=== PATIENT | female | born 2000 | race Caucasian/White ===

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

== ENCOUNTER 2020-12-18 01:39 | Outpatient (CLI) | payer OTHER, SELFPAY ==
--- NOTE | 2020-12-18 | DI.US_ITS ---
EXAM: US RENAL CLINICAL HISTORY: KIDNEY STONE,N20.0,LT HYDRONEPHROSIS TECHNIQUE: Ultrasound of both kidneys performed using standard protocol. COMPARISON: No exams were available for comparison FINDINGS: RIGHT KIDNEY: Measures 9 cm in length. No cysts evident. Normal cortical thickness and corticomedullary differentia tion .No solid masses No intrarenal calculi nor hydronephrosis. LEFT KIDNEY: Measures 10 cm in length. No cysts evident. Normal cortical thickness and corticomedullary different iaion. No solids masses. However, there appears to be mild hydronephrosis of the left kidney. URINARY BLADDER: Prevoid volume is 67 cc Postvoid volume is 25 cc No evidence of obvious bladder mass nor diverticuli. Ureterovesical jets: Both identified and appear symmetrical IMPRESSION: 1. There is unilateral mild hydronephrosis of the left kidney. No obvious calculus seen within the left kidney. 2. Right kidney appears unremarkable. 3. Bladder difficult to adequately study given that there was only 67 cc therein. DATA REPOSITORY:
== END 2020-12-18 01:59 ==
PROVIDERS: PCP Family Medicine; Visit Provider Nurse Practitioner Gerontology
DX: N13.30 Unspecified hydronephrosis (principal); Z87.442 Personal history of urinary calculi
CPT/HCPCS: 76770

== ENCOUNTER 2021-02-11 16:45 | Outpatient (REF) | payer OTHER, SELFPAY | END 2021-02-11 16:46 | disposition home or self-care (01) | LOC: LBN 16:45 | PROVIDERS: PCP Family Medicine; Visit Provider Nurse Practitioner Gerontology | DX: N39.0 Urinary tract infection, site not specified (principal) | CPT/HCPCS: 87086 ==

== ENCOUNTER 2021-04-23 14:49 | Outpatient (REF) | payer OTHER, SELFPAY ==
[2021-04-24 15:05] LABS: Chlamydia Result Negative (Negative); GC Result Negative (Negative)
== END 2021-04-23 14:50 | disposition home or self-care (01) ==
LOC: LBN 14:49
PROVIDERS: PCP Family Medicine; Visit Provider Advanced Practice Midwife
DX: F64.9 Gender identity disorder, unspecified (principal); Z11.3 Encounter for screening for infections with a predominantly sexual mode of transmission
CPT/HCPCS: 87491; 87591

== ENCOUNTER 2021-10-01 18:52 | Outpatient (REF) | payer OTHER, SELFPAY ==
[2021-10-01 14:46] LABS: Source Nasal/Nares
[2021-10-01 21:37] LABS: COVID-19 PCR Negative (Negative)
== END 2021-10-01 18:53 | disposition home or self-care (01) ==
LOC: LBN 18:52
PROVIDERS: PCP Family Medicine; Visit Provider Nurse Practitioner Gerontology
DX: Z20.822 Contact with and (suspected) exposure to COVID-19 (principal); Z01.818 Encounter for other preprocedural examination
CPT/HCPCS: 87635

== ENCOUNTER 2021-10-02 06:06 | Day surgery (SDC) | payer OTHER, SELFPAY ==
[2021-10-02] VITALS (8 sets, daily range): BP systolic 92–123; BP diastolic 49–84; PULSE 70–96; RESP 13–19; TEMP 36.3–37.1; O2SAT 98–100; BMI 21.6
--- NOTE | 2021-10-02 06:27 | W.ANESPRE ---
General Info Date of Service Date Performed: 10/02/21 Height: 5 ft 5 in Weight: 58.967 kg Body Mass Index (BMI): 21.6 Surgical Procedure: Operation Date: 10/02/21 07:40 Proposed Procedures Side Surgeon p Cystoscopy/Retrograde/Ureteroscopy/Stone Manipulation/ Poss. Stent Left Lewis Alberto MD Meds Allergies and Home Medications Allergies Allergy/AdvReac Type Severity Reaction Status Date / Time No Known Drug Allergies Allergy Verified 10/02/21 06:41 Home Medication Medication Instructions Recorded benzoyl peroxide 10 % lotion 1 applic TOPICAL DAILY #29.5 ml 06/19/21 norgestimate-ethinyl estradiol 1 tab PO DAILY 10/01/21 [[id number]] Current Visit Medications: Current Medications Generic Name Dose Route Start Last Admin Trade Name Freq PRN Reason Stop Dose Admin Ringer's Solution 1,000 mls @ 80 mls/hr 10/02/21 06:00 IV 10/31/21 23:59 INFUSION HALEIGH Cefazolin Sodium/Dextrose 2 gm in 50 mls @ 100 mls/hr 10/02/21 06:00 Ancef Duplex IVPB 10/02/21 16:00 PREOP HALEIGH IV Miscellaneous Supplies 1 each 10/02/21 06:00 Iv Access IV 10/31/21 23:59 DIRECTED HALEIGH Sodium Chloride 0 ml 10/02/21 06:00 Normal Saline Flush 10 Ml Syr IV 10/31/21 23:59 PRN PRN Sodium Chloride 0 ml 10/02/21 06:00 Normal Saline 10 Ml Vial IJ 10/31/21 23:59 DIRECTED PRN Sterile Water 0 ml 10/02/21 06:00 Water,Injection,Sterile 10 Ml Vial IJ 10/31/21 23:59 DIRECTED PRN PFSH Active Problems Active Problems: Problem Status Onset Code Food insecurity Z59.41 Chronic mental illness F99 Gender identity disorder F64.9 Hydronephrosis of left kidney N13.30 Transgender Z78.9 Depression F32.9 Migraine G43.909 Contraception Z30.9 Screen for STD (sexually transmitted disease) Z11.3 Attention deficit hyperactivity disorder, combined type F90.2 Kidney stone N20.0 Irregular menses N92.6 Hand discomfort M79.643 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 Tobacco Smoking/Tobacco Use Status: Never Passive smoking exposure: Yes Second hand exposure: Yes Alcohol Alcohol Intake: never Substance Use Substance use: Never Substance use type: does not use Vital Signs and Lab Results Vital Signs Most Recent Vital Signs in EMR: Temp Pulse Resp BP Pulse Ox 37.1 C 96 H 16 123/84 99 10/02/21 06:49 10/02/21 06:49 10/02/21 06:49 10/02/21 06:49 10/02/21 06:49 Lab Results Blood Type / Crossmatch: No Data to Display Complete Blood Count: No Data to Display Complete Metabolic Panel: No Data to Display Liver Function Panel: No Data to Display Coagulation Panel: No Data to Display Cardiac Panel: No Data to Display Arterial Blood Gas: No Data to Display Venous Blood Gas: No Data to Display Pancreas Panel: No Data to Display Thyroid Panel: No Data to Display Infectious Disease: Coronavirus (COVID-19)(PCR) Negative (Negative) 10/01/21 14:30 10/01/21 Coronavirus 2019 Source Nasal/Nares 10/01/21 14:30 10/01/21 Blood Cultures: No Data to Display Toxicology Panel: No Data to Display Panel: No Data to Display Anesthesia Assessment and Plan Anesthesia History Personal History: No History of Anesthesia Complications Family History: No Family History of Anesthesia Complications Exercise Tolerance Exercise Tolerance: Metabolic Equivalents>4 Cardiac & Pulmonary Exam Cardiac Exam: Normal S1/S2 Heart Sounds Pulmonary Exam: Clear Bilateral Breath Sounds Implantable Cardiac Device Does patient have a Pacemaker or an ICD?: No Airway Exam Known Difficult Airway: No Mallampati Class: 3 Mouth Opening: Narrow (< 3cm) Thyromental Distance: Less than 3 cm Neck Range of Motion: Full ROM Neck Circumference: Normal Teeth Condition: Normal Dentition ASA Classification ASA Score: ASA 2 Emergency Case?: No NPO Status NPO Status: NPO Clears >2 hours, Solids >8 hours Status Status: Negative HCG Anesthesia Plan Resuscitation Status: Full Code Anesthesia Technique: General Anesthesia Airway Planned: LMA Monitors Used: Standard Monitors Preoperative Comments:: 21 yo genetic f with left hydronephrosis for stone removal/stent. Sig PMHx: anxiety/depression, kidney stones, never smoker. extremely anxious about entire process, mostly the IV.
--- NOTE | 2021-10-02 06:53 | W.PM.HP.N ---
Date of service: 10/02/21 Time of Service: 06:54 Assessment and Plan Assessment and plan (1) Hydronephrosis of left kidney: Status: Acute Assessment and plan: She has persistent hydronephrosis and what appears to be a proximal ureteral stone on US. A stone was present in the same location on prior CT scan from [facility]. With her persistent symptoms and persistent hydronephrosis, we will move forward with a cystoscopy, retrograde pyelogram, ureteroscopy, holmium laser lithotripsy and possible stent. We discussed potential complications including bleeding, infection, ureteral injury/inability to access stone requiring a ureteral stent and return to the operating room for a staged procedure. History of Present Illness History of Present Illness Chief Complaint: Left ureteral stone Narrative: Garland is a 21-year-old female that identifies as a male. He has a history of kidney stones to the left. This started earlier this year and had a CT at [facility]. At that time there was a 2 to 3 mm stone. Repeat imaging did not note any stone presence. Since that time there is been waves of renal colic symptoms. Repeat renal ultrasound was done by PCP. 8 mm proximal left ureteral stone was found. Patient is here for ureteroscopic stone manipulation Currently patient is experiencing nausea and intermittent pain. Typically ibuprofen alleviates the pain. There is no notable change to frequency or urgency. No gross hematuria has been noted. Review of Systems Narrative: No fevers or chills No vision change or dysphasia No diabetes or thyroid No shortness of breath, cough or hemoptysis No chest pain or palpitations c/o nausea. No hepatitis, ulcers, jaundice, diarrhea or constipation ADDHD, hx migraines. No seizures or peripheral neuropathy No bleeding disorders or anemia No gout PFSH All Active Problems Food insecurity (Acute) Chronic mental illness (Acute) Gender identity disorder (Acute) XX but sees self as male Hydronephrosis of left kidney (Acute) Transgender (Acute) identifies as male Depression (Chronic) Migraine (Chronic) with visual changes, spots in front of eyes Contraception (Acute) Screen for STD (sexually transmitted disease) (Acute) Kidney stone (Chronic) Irregular menses (Acute) Hand discomfort (Acute) Pronation deformity of both feet (Acute) Leg pain, bilateral (Acute) Weight loss (Acute) Annual physical exam (Acute) Anxiety (Chronic) Bilateral foot pain (Chronic 05/11/17) Acne, unspecified (Chronic 05/11/17) Social History Smoking/Tobacco Use Status: Never Second Hand Exposure: Yes Smoking risk assessment performed?: Yes Alcohol Intake: never Drug use: Never Substance use type: does not use Adopted: Yes Caregiver/Support person: No Household members: family Housing: house Communication Needs: None Do you need help understanding health information?: Rarely Pets and animals: Yes Pets and animals: cat(s) and dog(s) Sexually active: No Do you think of yourself as: bisexual Current gender identity: trans [id number] What is your relationship status?: refused to answer How often do you talk on the phone with friends or family?: three or more times per week How often do you get together with friends or relatives?: three or more times per week How often do you attend scientology or uatsdin services?: decline to answer Do you belong to any clubs or organized social groups?: no Panel score (0-1 are the most socially isolated patients): 1 What type of physical activity do you participate in: weight lifting Duration: < 15 minutes/day Frequency: 1-2 times per week Annalisa/Cheondoism: Athiest Special annalisa needs: No Seatbelt use: always Helmet use: Yes Helmet use: sometimes Drive intox or ride w/intox tractor trailer moving van driver: No Do you feel safe at home: Yes Do you feel safe in your relationship?: Yes Meds Allergies and Home Medications Allergies Allergy/AdvReac Type Severity Reaction Status Date / Time No Known Drug Allergies Allergy Verified 10/02/21 06:41 Home Medications Medication Instructions Recorded Confirmed Type benzoyl peroxide 10 % lotion 1 applic TOPICAL DAILY #29.5 ml 06/19/21 10/01/21 Rx norgestimate-ethinyl estradiol 1 tab PO DAILY 10/01/21 10/02/21 History [[id number]] Exam Const General: cooperative and anxious Neck Neck: supple Resp Effort & Inspection: normal respiratory effort Auscultation: clear to auscultation bilaterally Cardio Rate: regular rate Rhythm: regular rhythm GI Palpation: soft and no masses Neuro General: patient alert, patient awake and patient oriented x3
[2021-10-02] MEDS: Lactated Ringers 1,000 ML 80 ML IV (07:45)
[2021-10-02] MEDS: ceFAZolin 2 GM/50 ML BAG IVPB (07:52)
[2021-10-02] MEDS: Lidocaine 2% Jelly 6 ML SYR (08:15)
[2021-10-02] MEDS: Omnipaque 300 MG/ML 50 ML BTL (08:20)
--- NOTE | 2021-10-02 08:40 | W.PM.DSUDISC ---
Discharge Plan Disposition Patient Disposition: HOME Condition: Stable Discharge Details Reason For Visit: ureteroscopy Attending Provider: Lewis Alberto Primary Care Provider: Hannah Sapp Home Meds and New Rx's Prescriptions: New tramadol 50 mg tablet 50 mg PO Q6H PRN (Reason: pain) Qty: 12 RF: 0 No Action benzoyl peroxide 10 % lotion 1 applic Topical DAILY Qty: 29.5 RF: 6 norgestimate-ethinyl estradiol [Utf-Vq-Npstxpfh] 0.18/0.215/0.25 mg-25 mcg tablet 1 tab PO DAILY RF: 0 Discharge Instructions Additional Instructions: followup early next week for stent removal (tell my office staff there is a string on his stent) followup appt @ 6 weeks for renal ultrasound and stone analysis no need to strain urine Activity:: Activity as Tolerated Shower/Bathe:: 24 hours Diet:: As Tolerated Discharge Orders Discharge Orders: Discharge Order (Routine); Ordered 10/02/21 Ordered By: Lewis Alberto DS: Diagnosis Discharge Diagnosis (1) Hydronephrosis of left kidney: Status: Acute
--- NOTE | 2021-10-02 08:42 | DI.RAD_ITS ---
Exam(s) XR RETROGRADE IN OR EXAM: XR RETROGRADE IN OR CLINICAL HISTORY: left hydronephrosis, kidney stone. TECHNIQUE: 2D digital imaging was performed. COMPARISON: No exams were available for comparison FINDINGS: Fluoroscopy was fight it for urologic procedure. See procedure report for details. Total fluoroscopy time 59 seconds Cumulative dose 6.02mGy IMPRESSION: DATA REPOSITORY: RADIATION DOSE DELIVERED:
--- NOTE | 2021-10-02 08:47 | ROE_ITS ---
Date of service: 10/02/21 Time of Service: 08:47 Operative Note Operative Note DATE OF PROCEDURE: 10/02/21 PRE-OP DIAGNOSIS: Left ureteral stone POST-OP DIAGNOSIS: other left ureteral and renal stones PROCEDURE: cystoscopy, left retrograde pyelogram, left flexible ureteroscopy with extraction of ureteral and renal stones, insert left ureteral stent SURGEON: Lewis Alberto ANESTHESIA TYPE: Local By Surgeon and General LMA/ETT Refer to Anesthesia Record ESTIMATED BLOOD LOSS: 0 PATHOLOGY: other (stones for chemical analysis) COMPLICATIONS: None Patient was transported to: PACU Patient's condition: stable Implants: 4.8 Panamanian by 22 to 30 cm ureteral stent Indications: This is a 21-year-old phenotypic female who identifies as a male. He has had multiple episodes of left-sided renal colic. In the past, he has been identified as having a 3 to 4 mm left ureteral stone. He was treated conservatively. He is not sure if the stone ever passed, but his symptoms improved. Most recently, he has had intermittent left flank pain, nausea and vomiting. A renal ultrasound showed left hydronephrosis and what appeared to be a 8 mm left proximal ureteral stone. He presents now for stone manipulation. Findings: edematous area in proximal left ureter with stone in ureter above area of edema two smaller stones in upper pole calyces kidney Procedure Description: Garland was given preoperative IV antibiotics. He was brought to the operating room on 10/02/2021. After successful induction of general anesthesia, he was placed in the dorsal lithotomy position. His genitalia and perineum were prepped and draped. 2% Xylocaine jelly was then instilled into the urethra. A 22 Panamanian rigid cystoscope was passed through the urethra into the bladder. The bladder was inspected with a 30 degree lens. Both ureteral orifices appeared normal in configuration and location. No papillary or nodular lesions were seen within the bladder. No stones were seen within the bladder lumen. The left ureteral orifice was then cannulated with a 6 Panamanian access catheter. Retrograde pyelogram was obtained by injecting Omnipaque through the access catheter under fluoroscopic guidance. A filling defect in the proximal ureter was outlined on the retrograde pyelogram. I then passed a Glidewire through the access catheter lumen and advanced the wire until the proximal and was seen in the kidney. The access catheter and cystoscope were removed. A dual-lumen catheter was advanced over the wire. A second wire was then positioned through the lumen of the dual-lumen catheter. We chose one of the wires as a working wire and the second as a safety wire. I passed a ureteral access sheath over the working wire and advanced the sheath such that the tip was in the proximal ureter below the level of the filling defect. I passed the flexible ureteroscope through the access sheath and advanced the scope up to the proximal ureter. There was a focal narrowing of the ureter with edematous mucosa. Presumably, this was the area of his ureteral stone. Just above this level, a stone was visualized. I was able to grasp the stone in a 0 tip stone basket and remove it in its entirety. We will reintroduced the flexible ureteroscope and inspected each of the calyces. Into the upper pole calyces, small stone fragments were identified. I was able to grasp each of the fragments and remove them using a 0 tip basket as well. Reintroduction of the ureteroscope did not identify any additional stones. Because of the edematous area in the ureter, we elected to place a ureteral stent. I chose a 4.8 Panamanian stent and advanced it over the safety wire. The proximal end of the stent was curled in the renal pelvis and the distal end of the stent was curled within the bladder. The positioning of the stent was co nfirmed both fluoroscopically and cystoscopically. The safety string was left on the end of the stent and brought through the patient's urethra. The end of this safety string was then tucked into the patient's vaginal cavity. He tolerated this procedure with no complications. Each of the stone fragments that had been removed were sent to pathology for chemical analysis. He was taken to the recovery room in stable condition.
--- NOTE | 2021-10-02 09:08 | W.ANESPOSTOP ---
Postoperative Evaluation Date, Time and Location Date Performed: 10/02/21 Time Performed: 09:08 Patient Location: PACU Vital Signs Most Recent Imported Vital Signs: Most Recent Vital Signs Temp Pulse Resp BP Pulse Ox 36.3 C L 79 13 108/62 98 10/02/21 09:01 10/02/21 09:01 10/02/21 09:01 10/02/21 09:01 10/02/21 09:01 Pain Score Most Recent Pain Score: Most Recent Pain Score Pain Level 0 10/02/21 06:49 Assessment Mental Status: Awake (Alert & Oriented to Patient Baseline) Airway and Respiratory Function: Patent airway with normal (patient baseline) respiratory exam Cardiovascular Function: Hemodynamically Stable Hydration Status: Adequately Hydrated Nausea & Vomiting: No Nausea or Vomiting Pain: Pain is tolerable per patient Peripheral Nerve Block: Patient did not receive a nerve block
[2021-10-07 22:25] LABS: Source: Left Ureter
== END 2021-10-02 10:40 | disposition home or self-care (01) ==
PROVIDERS: PCP Family Medicine; Visit Provider Urology
PROC: (CPT 52352; principal; 2021-10-02 07:30)
DX: N13.2 Hydronephrosis with renal and ureteral calculous obstruction (principal)
CPT/HCPCS: 52352; 52332; 81025; 74420; 82365; J0690; J1100; J1885; J2250; J2405; Q9967

== ENCOUNTER 2022-01-08 11:12 | Outpatient (REF) | payer OTHER, SELFPAY ==
--- NOTE | 2022-01-08 08:45 | PAPFT_PTH ---
PATIENT: Garland Russell LOC: [facility] U#:[id number] AGE/SX: 21/F ROOM: RE01/08/[address]: Hannah Sapp MD, DC : 2000 BED: DIS: 01/08/2022 SPEC #: [id number] RECD: 01/08/22 13:16 STATUS: REGINA REDominique #: [id number] PREET: 01/08/22 08:[address]: Hannah Sapp DEPT: [facility] Cytology RECD BY: Lida Hall Tissues: 1 - CX/ENDOCX FOR PAP SMEARS Procedures: PAP THIN PREP/[facility] Screening Comments: [id number] (CHLAMYDIA/GC)
[2022-01-09 14:58] LABS: Chlamydia Result Negative (Negative); GC Result Negative (Negative)
== END 2022-01-08 11:13 | disposition home or self-care (01) ==
LOC: LBN 11:12
PROVIDERS: PCP Family Medicine; Visit Provider Family Medicine
DX: R87.610 Atypical squamous cells of undetermined significance on cytologic smear of cervix (ASC-US) (principal); Z11.3 Encounter for screening for infections with a predominantly sexual mode of transmission; Z12.4 Encounter for screening for malignant neoplasm of cervix
CPT/HCPCS: 87491; 87591; 88142

== ENCOUNTER 2022-08-28 20:27 | Outpatient (REF) | payer OTHER, SELFPAY | END 2022-08-28 20:28 | disposition home or self-care (01) | LOC: LBN 20:27 | PROVIDERS: PCP Family Medicine; Visit Provider Nurse Practitioner Family | DX: J02.9 Acute pharyngitis, unspecified (principal) | CPT/HCPCS: 87070 ==

== ENCOUNTER 2023-04-23 01:36 | Outpatient (CLI) | payer MEDICAID, SELFPAY ==
[2023-04-23 14:07] LABS: HCT 46.8 % (36.0-46.0); HGB 16.2 g/dL (11.2-15.7)
[2023-04-30 08:34] LABS: Testosterone, Total 411 ng/dL (8-60)
== END 2023-04-23 01:37 | disposition home or self-care (01) ==
LOC: LBO 01:40
PROVIDERS: PCP Family Medicine; Visit Provider Physician Assistant
DX: F64.8 Other gender identity disorders (principal)
CPT/HCPCS: 36415; 84403; 85014; 85018

== ENCOUNTER 2023-10-06 04:46 | Outpatient (CLI) | payer MEDICAID, SELFPAY ==
[2023-10-06 13:01] LABS: HCT 45.2 % (36.0-46.0); HGB 15.4 g/dL (11.2-15.7)
[2023-10-12 17:22] LABS: Testosterone, Total 1290 ng/dL (8-60)
== END 2023-10-06 04:47 | disposition home or self-care (01) ==
LOC: LBO 04:46
PROVIDERS: PCP Family Medicine; Visit Provider Physician Assistant
DX: F64.8 Other gender identity disorders (principal)
CPT/HCPCS: 36415; 84403; 85014; 85018

== ENCOUNTER 2023-10-25 19:12 | Outpatient (CLI) | payer MEDICAID, SELFPAY ==
[2023-10-30 06:17] LABS: Testosterone, Total 578 ng/dL (8-60)
== END 2023-10-25 19:13 | disposition home or self-care (01) ==
LOC: LBO 19:13
PROVIDERS: PCP Nurse Practitioner Family; Visit Provider Physician Assistant
DX: F64.9 Gender identity disorder, unspecified (principal)
CPT/HCPCS: 36415; 84403

== ENCOUNTER 2024-01-28 01:15 | Outpatient (CLI) | payer BC, SELFPAY ==
[2024-01-28 16:59] LABS: HCT 44.1 % (36.0-46.0); HGB 15.3 g/dL (11.2-15.7)
[2024-02-05 13:44] LABS: Testosterone, Total 1230 ng/dL (8-60)
== END 2024-01-28 01:16 | disposition home or self-care (01) ==
LOC: LBO 01:15
PROVIDERS: PCP Nurse Practitioner Family; Visit Provider Physician Assistant
DX: F64.9 Gender identity disorder, unspecified (principal)
CPT/HCPCS: 36415; 84403; 85014; 85018

== ENCOUNTER 2024-04-04 11:34 | Outpatient (CLI) | payer BC, SELFPAY ==
[2024-04-04 16:36] LABS: HGB 15.5 g/dL (11.2-15.7)
[2024-04-05 18:28] LABS: Estradiol 55 pg/mL (See Note)
== END 2024-04-04 11:35 | disposition home or self-care (01) ==
LOC: LBO 11:34
PROVIDERS: PCP Nurse Practitioner Family; Visit Provider Physician Assistant
DX: F64.9 Gender identity disorder, unspecified (principal)
CPT/HCPCS: 36415; 84403; 82670; 85014; 85018

== ENCOUNTER 2024-04-24 16:53 | Outpatient (REF) | payer BC, SELFPAY ==
--- NOTE | 2024-04-24 14:10 | PAPFT_PTH ---
PATIENT: Garland Russell LOC: [facility] U#:[id number] AGE/SX: 23/F ROOM: RE04/24/[address]: Jose Antonio Henry DNP : 2000 BED: DIS: 04/24/2024 SPEC #: [id number] RECD: 04/25/24 13:18 STATUS: REGINA REDominique #: [id number] PREET: 04/24/24 14:[address]: Jose Antonio Espitia DEPT: [facility] Cytology RECD BY: Lida Hall Tissues: 1 - CX/ENDOCX FOR PAP SMEARS Procedures: PAP THIN PREP/[facility] Screening Comments: [id number] (UNSATISFACTORY FOR EVALUATION)
== END 2024-04-24 16:54 | disposition home or self-care (01) ==
LOC: LBN 16:53
PROVIDERS: PCP Nurse Practitioner Family; Visit Provider Nurse Practitioner Family
DX: Z00.00 Encounter for general adult medical examination without abnormal findings (principal); Z01.818 Encounter for other preprocedural examination
CPT/HCPCS: 88142

== ENCOUNTER 2024-05-30 16:17 | Emergency (ER) | payer BC, SELFPAY ==
[2024-05-30 16:20] VITALS: BP 120/81; PULSE 128; RESP 16; TEMP 37.6; O2SAT 98
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
[2024-05-30] MEDS: Rabies vaccine (PCEC)/PF 2.5 UNITS/ML VIAL IM (17:29)
[2024-05-30] MEDS: Rabies Immune Globulin 1,500 UNIT/5 ML VIAL 1538 UNITS IM (17:30)
--- NOTE | 2024-05-30 17:31 | NUR.NOTE ---
Message left for [facility] Nichol Cross that there was an animal bite, report to be faxed during the day shift tomorrow, that we started rabies series. Any questions to call the ED Nursing Note:
[2024-05-30] MEDS: Amoxicillin 875/Clav. 125 TAB PO (17:34)
--- NOTE | 2024-05-30 17:41 | NUR.NOTE ---
Faxed to Infusion Rabies Vaccine PHysician [facility] for series. Patient given copy. Day 3: Jun 02 Day 7: Jun 3 Day 14: Jun 13 Nursing Note:
[2024-05-30] MEDS: Amox. 875/Clav. 125, 2 TABS/BTL 1 TAB PO (17:46)
== END 2024-05-30 17:46 | disposition home or self-care (01) ==
PROVIDERS: Emergency Provider Emergency Medicine; PCP Nurse Practitioner Family
DX: S80.212A Abrasion, left knee, initial encounter (principal); W55.09XA Other contact with cat, initial encounter; S81.051A Open bite, right knee, initial encounter; W55.01XA Bitten by cat, initial encounter; Z20.3 Contact with and (suspected) exposure to rabies; Z23 Encounter for immunization
CPT/HCPCS: 90375; 90471; 96372; 99284; 90675; 99283

== ENCOUNTER 2024-06-02 00:52 | Outpatient (RCR) | payer BC, SELFPAY ==
[2024-06-02] MEDS: Rabies vaccine (PCEC)/PF 2.5 UNITS/ML VIAL IM (12:25)
== END 2024-06-03 23:59 | disposition home or self-care (01) ==
LOC: INF 00:52
PROVIDERS: PCP Nurse Practitioner Family; Visit Provider Emergency Medicine
DX: Z29.14 Encounter for prophylactic rabies immune globulin (principal); Z20.3 Contact with and (suspected) exposure to rabies
CPT/HCPCS: 96372; 90675

== ENCOUNTER 2024-06-13 01:39 | Outpatient (RCR) | payer BC, SELFPAY ==
[2024-06-06] MEDS: Rabies vaccine (PCEC)/PF 2.5 UNITS/ML VIAL IM (12:21)
[2024-06-13] MEDS: Rabies vaccine (PCEC)/PF 2.5 UNITS/ML VIAL IM (11:48)
== END 2024-07-03 23:59 | disposition home or self-care (01) ==
LOC: INF 01:39
PROVIDERS: PCP Nurse Practitioner Family; Visit Provider Emergency Medicine
DX: Z29.14 Encounter for prophylactic rabies immune globulin (principal); Z20.3 Contact with and (suspected) exposure to rabies
CPT/HCPCS: 96372; 90675

== ENCOUNTER 2024-09-12 02:21 | Outpatient (CLI) | payer BC, SELFPAY ==
[2024-09-12 13:31] LABS: HCT 45.1 % (36.0-46.0); HGB 15.4 g/dL (11.2-15.7)
[2024-09-12 22:57] LABS: Estradiol 46 pg/mL (See Note)
[2024-09-17 09:44] LABS: Testosterone, Total 357 ng/dL (8-60)
== END 2024-09-12 02:22 | disposition home or self-care (01) ==
LOC: LBO 02:21
PROVIDERS: PCP Nurse Practitioner Family; Visit Provider Physician Assistant
DX: F64.9 Gender identity disorder, unspecified (principal)
CPT/HCPCS: 36415; 84403; 82670; 85014; 85018

== ENCOUNTER 2025-03-15 01:53 | Outpatient (CLI) | payer MEDICAID, SELFPAY ==
[2025-03-15 11:37] LABS: HCT 45.1 % (36.0-46.0); HGB 15.3 g/dL (11.2-15.7)
[2025-03-20 12:33] LABS: Testosterone, Total 158 ng/dL (8-60)
== END 2025-03-15 01:54 | disposition home or self-care (01) ==
LOC: LBO 01:53
PROVIDERS: PCP Nurse Practitioner Family; Visit Provider Physician Assistant
DX: F64.9 Gender identity disorder, unspecified (principal)
CPT/HCPCS: 36415; 84403; 85014; 85018

== ENCOUNTER 2025-04-27 18:01 | Outpatient (REF) | payer MEDICAID, SELFPAY ==
[2025-04-27 22:06] LABS: ALT 21 U/L (14-59); AST 16 U/L (15-37); Albumin 4.2 g/dL (3.4-5.0); Alkaline Phosphatase 71 U/L (46-116); Anion Gap 10.1 mmol/L (3-11); BUN 10 mg/dL (7-18); Bilirubin, Total 0.8 mg/dL (0.2-1.0); CO2 23.9 mmol/L (21.0-32.0); Calcium 9.4 mg/dL (8.5-10.1); Calculated LDL 101 mg/dL (<100); Chloride 103 mmol/L (98-107); Cholesterol 174 mg/dL (<200); Estimated GFR 123.78 (mL/min/1.73m2); Glucose 113 mg/dL (74-106); HDL Cholesterol 41 mg/dL (>or=50); Potassium 4.4 mmol/L (3.5-5.1); Sodium 137 mmol/L (136-145); Total Protein 7.7 g/dL (6.4-8.2); Triglyceride 161 mg/dL (<150)
[2025-04-30 10:10] LABS: HIV-1/2 Ag & Ab Screen Negative (Negative)
[2025-04-30 10:40] LABS: Hepatitis C Ab w Rflx HCV PCR Negative (Negative)
[2025-04-30 10:59] LABS: HBs Antibody, Quant <3.1 mIU/mL (See Note); Hepatitis B Surface Antigen Negative (Negative)
== END 2025-04-27 18:02 | disposition home or self-care (01) ==
LOC: LBN 18:01
PROVIDERS: PCP Nurse Practitioner Family; Visit Provider Nurse Practitioner Family
DX: Z11.4 Encounter for screening for human immunodeficiency virus [HIV] (principal); Z11.59 Encounter for screening for other viral diseases; Z13.220 Encounter for screening for lipoid disorders
CPT/HCPCS: 80053; 80061; 86704; 86706; 86803; 87340; 87389